=== PATIENT | male | born 1940 | race Caucasian/White ===

== ENCOUNTER → 2018-03-24 | Outpatient (CLI) | payer BC | LOC: BMCIMAGING 13:26 | PROVIDERS: ATTEND Urology | DX: R33.9 Retention of urine, unspecified (principal); N28.1 Cyst of kidney, acquired; N40.0 Benign prostatic hyperplasia without lower urinary tract symptoms ==

== ENCOUNTER 2018-05-20 05:52 | Day surgery (SDC) | payer BC, OTHER ==
[2018-05-20] MEDS ORDERED: LR 1,000 ML IV ONE (12:01)
--- NOTE | 2018-05-20 12:09 | PDANEPAE ---
ANE Past Medical History - Cardiovascular History Hx Hypertension: Yes Hx Arrhythmias: No Hx Chest Pain: No Hx Coronary Artery / Peripheral Vascular Disease: No Hx CHF / Valvular Disease: No Hx Palpitations: No Cardiovascular History Comment: hyperlipidemia. pcp monitors bp medications - Pulmonary History Hx COPD: No Hx Asthma/Reactive Airway Disease: No Hx Recent Upper Respiratory Infection: No Hx Oxygen in Use at Home: No Hx Sleep Apnea: No Sleep Apnea Screening Result - Last Documented: Negative - Neurologic History Hx Cerebrovascular Accident: No Hx Seizures: No Hx Dementia: No - Endocrine History Hx Diabetes: No - Renal History Hx Renal Disorders: Yes Renal History Comment: bph. urinary retention. - Liver History Hx Hepatic Disorders: No - Neurological & Psychiatric Hx Hx Neurological and Psychiatric Disorders: No - Cancer History Hx Cancer: No - Congenital Disorder History Hx Congenital Disorders: No - GI History Hx Gastrointestinal Disorders: No - Other Health History Other Health History: none - Chronic Pain History Chronic Pain: No - Surgical History Prior Surgeries: left hand surgery. hernia repair ANE Review of Systems Review of Systems: - Exercise capacity METS (RN): 5 METS ANE Patient History - Allergies Allergies/Adverse Reactions: No Allergies Allergy (Verified 05/19/18 14:35) - Home Medications Home Medications: Aspirin [Aspirin 81mg (*)] 81 mg PO DAILY18 05/19/18 [Last Taken 05/15/18] Cholecalciferol Vit D3 [Vitamin D3 (*)] 1,000 units PO DAILY 05/19/18 [Last Taken 05/19/18] Glucosamine Sulfate [Glucosamine Sulfate 500 MG (*)] 500 mg PO DAILY 05/19/18 [ Last Taken 05/19/18] Herbals/Supplements -Info Only 1 ea PO AD 05/19/18 [Last Taken 05/19/18] Springer-3 Fatty Acids [Fish Oil 1000 mg (*)] 1,000 mg PO Q2D 05/19/18 [Last Taken 05/19/18] Ramipril [Altace] 10 mg PO DAILY 05/19/18 [Last Taken Unknown] Rosuvastatin Calcium [Crestor] 10 mg PO DAILY 05/19/18 [Last Taken Unknown] Tamsulosin HCl [Flomax 0.4 MG (*)] 0.4 mg PO DAILY 05/19/18 [Last Taken Unknown] Vitamin B Complex [Vitamin B Complex (OTC)] 1 each PO DAILY 05/19/18 [Last Taken 05/19/18] - Smoking Hx Smoking Status: Never smoked - Family Anes Hx Family Hx Anesthesia Complications: none ANE Labs/Vital Signs - Vital Signs Height: 177.8 cm Weight: 79.379 kg ANE Physical Exam - Airway Neck exam: FROM Mallampati Score: Class 2 Mouth exam: normal dental/mouth exam - Pulmonary Pulmonary: no respiratory distress - Cardiovascular Cardiovascular: regular rate and rhythym - ASA Status ASA Status: II ANE Anesthesia Plan Anesthesia Plan: general endotracheal anesthesia, GA w LMA
[2018-05-20] MEDS ORDERED: LIDOCAINE 2% JELLY 20 ML (UROJECT) ONE (12:13)
[2018-05-20] MEDS ORDERED: fentaNYL 100 MCG/2 ML INJ ONE (12:41)
[2018-05-20] MEDS ORDERED: PROPOFOL 200 MG/20 ML VIAL ONE (12:41)
[2018-05-20] MEDS ORDERED: CEFAZOLIN 2 GM/DEXTROSE/100 ML BAG IV ONE (12:50)
[2018-05-20] MEDS ORDERED: ceFAZolin 2 GM/DEXTROSE 100 ML IV ONE ×2 (12:54→13:00)
--- NOTE | 2018-05-20 12:54 | PDHPUP ---
History & Physical Update H&P update statement: This history and physical update is based on an assessment of the patient which was completed after admission or registration (within 24 hours), but prior to the surgery/procedure. H&P update: H&P reviewed & patient examined, no change in patient's condition since H&P completed
[2018-05-20] MEDS ORDERED: Herbals/Supplements -Info Only PO SCH (13:00)
--- NOTE | 2018-05-20 14:33 | POSTOPPROG ---
Post Op Note Date of Operation: 05/20/18 Surgeon: Regan Chen Anesthesia: LMA Pre-op Diagnosis: BPH with bladder outlet obstruction Post-op Diagnosis: same with bladder stones Indication: urinary retention Procedure: cystoscopy, evacuation of bladder stones, Greenlight laser/Bipolar TURP Findings: mult small bladder stones, large obstructing prostate Inf/Abcess present in the surg proc area at time of surgery?: No EBL: 50-100 (bleeding controlled with point cautery) Complications: none Drains: Other (coyle catheter)
[2018-05-20] MEDS ORDERED: NALOXONE HCL 0.4 MG/ML INJ IVP PRN ×2 (14:38→14:41)
[2018-05-20] MEDS ORDERED: ACETAMINOPHEN 500 MG TAB PO PRN (14:38)
[2018-05-20] MEDS ORDERED: fentaNYL 100 MCG/2 ML INJ IVP PRN (14:38)
[2018-05-20] MEDS ORDERED: ONDANSETRON 4 MG/2 ML VIAL IVP PRN (14:38)
[2018-05-20] MEDS ORDERED: ALBUTEROL 3 ML DEYVIAL IH PRN (14:38)
--- NOTE | 2018-05-20 14:39 | POSTANESTH ---
Post Anesthetic Evaluation Cardiovascular Status: Similar to Pre-Op Cond Respiratory Status: Similar to Pre-op Cond. Level of Consciousness/Mental Status: Mildly Sleepy, Arousable Pain Control: Adequate, Prn Tx Ordered Nausea/Vomiting Control: Adequate, Prn Tx Ordered Complications Possibly Related to Anesthesia: None Noted
[2018-05-20] MEDS ORDERED: HYDROCODONE/APAP 5/325 TAB PO PRN (14:41)
[2018-05-20] MEDS ORDERED: oxyCODONE IR 5 MG TAB PO PRN (14:41)
--- NOTE | 2018-05-20 15:16 | GOP ---
[f rep st] OPERATIVE REPORT DATE OF OPERATION: 05/20/2018 SURGEON: Regan Chen MD ANESTHESIA: General. PREOPERATIVE DIAGNOSIS: Benign prostatic hypertrophy with bladder outlet obstruction. POSTOPERATIVE DIAGNOSIS: Benign prostatic hypertrophy with bladder outlet obstruction. PROCEDURE PERFORMED: Cystoscopy, GreenLight laser photo-vaporization of the prostate, bipolar transu rethral resection of the prostate, evacuation of bladder stones. FINDINGS: INDICATIONS: This is a man with a large obstructive prostate. DESCRIPTION OF PROCEDURE: Consent obtained. Patient was brought to the operating room. Once genera l anesthesia was underway he was put in lithotomy position, prepped and draped in the normal sterile fashion. A 26-K[place] rigid scope was passed into the bladder via the trocar. Inspection of the blad leonela showed large trabeculation with multiple small bladder stones. These were evacuated from the eladia dder and sent to Pathology for evaluation. GreenLight laser scope was then utilized resect the major ity of the prostate tissue from the bladder neck back toward the verumontanum. It was started at 80 [address] and increased to 100 [address]. A channel was made between the proximal to distal prostate. There was significant bleeding, making visualization of the apex of the prostate more difficult. For this reason, the GreenLight was removed, and a bipolar transurethral resection of the prostate was perfor med. Additional tissue was removed. This was sent to Pathology for evaluation. The bleeding was co ntrolled with cautery. There was no evidence of any further bleeding. A Vilchis catheter was inserted , and the patient was transferred to the recovery room in good condition. /[id number]/MODL
[2018-05-20 15:56] VITALS: BP 101/78
[2018-05-21] MEDS ORDERED: GLUCOSAMINE SULF 500 MG CAP PO SCH (09:00)
[2018-05-21] MEDS ORDERED: ROSUVASTATIN CALCIUM 10 MG TAB PO SCH (09:00)
[2018-05-21] MEDS ORDERED: RAMIPRIL 5 MG CAP PO SCH (09:00)
[2018-05-21] MEDS ORDERED: CHOLECALCIFEROL VIT D3 1,000 UNITS TAB PO SCH (09:00)
[2018-05-21] MEDS ORDERED: VITAMIN B COMPLEX 1 EA CAP/TAB PO SCH (09:00)
[2018-05-21] MEDS ORDERED: TAMSULOSIN HCL 0.4 MG CAP PO SCH (09:00)
[2018-05-22] MEDS ORDERED: OMEGA-3 FATTY ACIDS 1,000 MG CAP PO SCH (09:00)
== END 2018-05-20 10:57 | disposition home or self-care (01) ==
LOC: FSGY 05:52 → F3N 11:32 → UNDOADMOB 11:32 → EDSTATUS 15:00 → UNDODISOB 16:03
PROVIDERS: ATTEND Urology
DX: N40.1 Benign prostatic hyperplasia with lower urinary tract symptoms (principal); N21.0 Calculus in bladder; R33.9 Retention of urine, unspecified; E78.5 Hyperlipidemia, unspecified
CPT/HCPCS: J0690; J2704; J3010